=== PATIENT | male | born 1965 | race Caucasian/White ===

== ENCOUNTER → 2025-05-17 11:03 | Outpatient (REF) | payer BC, SELFPAY | LOC: MRI 3T 11:03 | PROVIDERS: ATTENDING PHYSICIAN Specialist; FAMILY PHYSICIAN Family Medicine | DX: R97.20 Elevated prostate specific antigen [PSA] (principal) | CPT/HCPCS: 72197; A9575 ==

== ENCOUNTER → 2025-05-26 13:26 | Outpatient (REF) | payer BC, SELFPAY | LOC: REG 13:26 | PROVIDERS: ATTENDING PHYSICIAN Specialist; FAMILY PHYSICIAN Family Medicine | DX: Z22.322 Carrier or suspected carrier of Methicillin resistant Staphylococcus aureus (principal) | CPT/HCPCS: 36415; 87070 ==

== ENCOUNTER → 2025-05-29 12:09 | Outpatient (REF) | payer BC, SELFPAY | LOC: REG 12:09 | PROVIDERS: ATTENDING PHYSICIAN Specialist | DX: Z22.322 Carrier or suspected carrier of Methicillin resistant Staphylococcus aureus (principal) | CPT/HCPCS: 87070 ==

== ENCOUNTER 2025-07-21 06:16 | Day surgery (SDC) | payer BC, SELFPAY | END 2025-07-21 14:39 | disposition home or self-care (01) | LOC: GI 06:16 | PROVIDERS: ATTENDING PHYSICIAN Internal Medicine Gastroenterology; FAMILY PHYSICIAN Family Medicine | DX: Z12.11 Encounter for screening for malignant neoplasm of colon (principal); D12.3 Benign neoplasm of transverse colon; K63.5 Polyp of colon; K62.1 Rectal polyp; K57.30 Diverticulosis of large intestine without perforation or abscess without bleeding; K64.8 Other hemorrhoids | CPT/HCPCS: 45385; 45380; 88305 ==